=== PATIENT | male | born 1970 ===

== ENCOUNTER 2017-12-14 11:41 | Emergency (ER) | payer MEDICAID ==
[2017-12-14 11:41] VITALS: BMI 30.9
[2017-12-14 11:47] VITALS: PULSE 64; RESP 16; TEMP 97; O2SAT 100
--- NOTE | 2017-12-14 12:34 | ED PDOC ---
HPI: General Adult Time Seen by Provider: 12/14/17 12:20 Chief Complaint (Nursing): ENT Problem History Per: Patient History/Exam Limitations: no limitations Current Symptoms Are (Timing): Still Present Additional Complaint(s): Mr. Aceves is a 47 year old male who presents to the ED complaining of sore throat, ongoing for over a year. Patient states he seen his doctor when his symptoms started. Patient was told he had an infection. His symptoms never got better. Patient did not follow with any specialist. No fever, headache, URI symptoms, rash. PMD: Adriel Bruce Past Medical History Reviewed: Historical Data, Nursing Documentation, Vital Signs Vital Signs: Last Vital Signs Temp 97 F L 12/14/17 11:44 Pulse 64 12/14/17 11:44 Resp 16 12/14/17 11:44 BP 155/80 H 12/14/17 13:25 Pulse Ox 100 12/14/17 13:35 - Surgical History Surgical History: No Surg Hx - Family History Family History: States: Unknown Family Hx - Social History Current smoker - smoking cessation education provided: No Alcohol: None Drugs: Denies - Immunization History Hx Tetanus Toxoid Vaccination: No Hx Influenza Vaccination: No Hx Pneumococcal Vaccination: No - Home Medications Home Medications: Ambulatory Orders Medication Instructions Recorded Naproxen [Naprosyn] 500 mg PO BID PRN #14 tablet 08/07/16 - Allergies Allergies/Adverse Reactions: Allergies Allergy/AdvReac Type Severity Reaction Status Date / Time No Known Allergies Allergy Verified 08/07/16 09:18 Review of Systems ROS Statement: Except As Marked, All Systems Reviewed And Found Negative Constitutional: Negative for: Fever ENT: Positive for: Throat Pain Genitourinary Male: Negative for: Dysuria, Hematuria Skin: Negative for: Rash Neurological: Negative for: Headache Physical Exam - Physical Exam Comments: GENERAL APPEARANCE: Patient is awake, alert, oriented x 3, in no acute distress. SKIN: Warm, dry; (-) cyanosis, (-) rash. EYES: (-) conjunctival pallor, (-) scleral icterus, (-) conjunctival hemorrhage. ENMT: Mucous membranes moist. TMs: (-) erythema. Airway patent: (-) stridor. Pharynx: (-) erythema, (-) exudate. NECK: (-) tenderness, (-) stiffness, (-) meningismus, (-) lymphadenopathy. CHEST AND RESPIRATORY: (-) accessory muscle use. Lungs: (-) rales, (-) rhonchi, (-) wheezes, (-) rub; breath sounds equal bilaterally. HEART AND CARDIOVASCULAR: (-) irregularity; (-) murmur, (-) gallop, (-) rub. ABDOMEN AND GI: Soft; (-) tenderness, (-) guarding; (-) organomegaly; (-) mass; (-) CVA tenderness. EXTREMITIES: (-) deformity; (-) cellulitis, (-) lymphangitis; (-) subungual hemorrhage; (-) edema. NEURO AND PSYCH: Mental status as above; (-) focal findings. - ECG O2 Sat by Pulse Oximetry: 100 (RA) Pulse Ox Interpretation: Normal Medical Decision Making Medical Decision Making: Time: 12:32 Plan: - Rapid Strep Group A Antigen Stat (-) for Rapid Strep Group A Antigen Stat Advised to follow up with ENT doctor. Return to the emergency room at any time for any new or worsening symptoms. Patient states he fully agrees with and understands discharge instructions. States that he agrees with the plan and disposition. Verbalized and repeated discharge instructions and plan. I have given the patient opportunity to ask any additional questions. Scribe Attestation: Documented by Willem Gaytan, acting as a scribe for Denise Pfeiffer PA-C. Provider Scribe Attestation: All medical record entries made by the Scribe were at my direction and personally dictated by me. I have reviewed the chart and agree that the record accurately reflects my personal performance of the history, physical exam, medical decision making, and the department course for this patient. I have also personally directed, reviewed, and agree with the discharge instructions and disposition. Disposition - Clinical Impression Clinical Impression: Sore throat - Patient ED Disposition Is Patient to be Admitted: No Counseled Patient/Family Regarding: Studies Performed, Need For Followup - Disposition Referrals: Catrachito Ricci MD [Staff Provider] - Disposition: Routine/Home Disposition Time: 13:34 Condition: STABLE Instructions: Sore Throat, Adult (DC) Forms: Jibo (Turkish) - PA / EXTERIOR DESIGNER / Resident Statement MD/DO has reviewed & agrees with the documentation as recorded.
[2017-12-14 13:36] VITALS: BP 155/80
== END 2017-12-14 13:35 | disposition home or self-care (01) ==
LOC: H.ER 11:41
DX: J02.9 Acute pharyngitis, unspecified (principal)